=== PATIENT | male | born 1955 | race Two or more races ===

== ENCOUNTER 2025-03-03 07:26 | Outpatient (CLI) | payer OTHER ==
[~2025-03-03] VITALS: Ht 167.6 cm; Wt 88.9 kg
[2025-03-03] MEDS: REGADENOSON 0.4 MG/5 ML SYRG IV ONE ×2 (09:32)
--- NOTE | 2025-03-08 06:39 | DVHSR ---
APPROVED REPORT Exam: Nuclear Stress Test BMI: 0 Stress Test Details Stress Test: Pharmacologic stress testing performed using 0.4 mg of regadenoson per 5 mL given IV over 10 seconds. HR Resting HR: 62 bpm Max Heart Rate (APMHR): 152.784734 bpm Max HR Achieved: 95 bpm Target HR (85% APMHR): 129.473402 bpm % of APMHR: 62.50 Recovery HR: 70 bpm BP Resting BP: 108/57 mmHg Recovery BP: 114/67 mmHg ECG Resting ECG: Sinus Rhythm Clinical Reason for Termination: Completed protocol Nurse Comments Recieved pt. from [facility]. A/Ox4 on RA. Connected to court recording monitor, VS stable. PIV flushes well. Reviewed POC. Pt. verbalized understanding of procedure including risks and side effects, agrees for stress testing. Lexiscan stress test performed per protocol. [facility] tech administered Cardiolite. Pt. tolerated well. Pt. stable, no change on exam. VS returned to baseline. Transferred to [facility] via wheelchair w/ tech. 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 Time of rest injection: 0820 Time of rest imagin Administration Route: IV Administration Site: Left Arm Pharmacologic Stress Pharmacologic stress test was performed by injecting Regadenoson 0.4 mg IV push followed by the intravenous injection of 28.6 mCi of Tc-99m Sestamibi. Time of stress injection: 0945 Time of stress imagin Administration Route: IV Administration Site: Left Arm Gated Stress SPECT was performed 45 minutes after stress injection. The images were gated to evaluate regional wall motion and calculate left ventricular ejection fraction. 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
== END 2025-03-03 17:00 | disposition home or self-care (01) ==
LOC: XYW 07:26
PROVIDERS: ATTEND Internal Medicine
DX: I25.10 Atherosclerotic heart disease of native coronary artery without angina pectoris (principal)
CPT/HCPCS: 78452; 93017; A9500; J2785

== ENCOUNTER 2025-03-24 09:21 | Outpatient (CLI) | payer OTHER ==
--- NOTE | 2025-03-24 11:58 | DVHSR ---
APPROVED REPORT EXAM: Two-dimensional and M-mode echocardiogram with Doppler and color Doppler. INDICATION CAD RISK FACTORS Height: 66, Weight: 196 DIMENSIONS LVDd (3.8-5.7cm) LA (2D) 4.4 (1.9-4.0cm) Aortic Root 4.1 (2.0-3.7cm) LVDs (2.5-4.0cm) LA (MM) (1.9-4.0cm) Aortic Cusp Exc 1.7 (1.5-2.0cm) EF (%) 65.0 (55-70%) Rt. Atrium 4.0 (1.9-4.0cm) Asc. Aorta cm Mitral Valve Mitral Mitral Stenosis E wave 0.50m/s MV Mean GR. mmHg A wave 0.57m/s MV Peak GR. mmHg E/A ratio 0.9 2D MVA cm2 DECEL Time 218ms PRESS 1/2 Time ms Aortic Valve Aortic Valve Aortic Stenosis V1 1.02m/s AO Mean GR. 4mmHg V2 1.30m/s AO Peak GR. 7mmHg LVOT Diameter 2.0 (1.8-2.4cm) Doppler FLORI 2.46cm2 AI P 1/2 Time 718.63ms Pulmonic Valve V2 1.28m/s Tricuspid Valve TR Velocity 2.36m/s RVSP 25mmHg Other Information Technically limited study due to body habitus. Conclusion Sinus rhythm. Off axis views. Aortic root enlargement. Left atrial enlargement. Valves appear to be structurally normal. Aortic valve is trileaflet. The mitral is normal. The tricuspid and pulmonic normal. EF of 55%. Normal RV function. Dopplers unremarkable. No pericardial effusion masses or vegetations.
== END 2025-03-24 17:00 | disposition home or self-care (01) ==
LOC: XYW 09:21
PROVIDERS: ATTEND Internal Medicine
DX: I51.7 Cardiomegaly (principal); I25.10 Atherosclerotic heart disease of native coronary artery without angina pectoris
CPT/HCPCS: 93306